=== PATIENT | male | born 1940 | race Caucasian/White ===

== ENCOUNTER → 2016-10-09 | Outpatient (CLI) | payer MEDICARE, BC ==
[2016-10-09 10:48] VITALS: BP 126/75; PULSE 52; RESP 18; TEMP 97.3; BMI 37.5
--- NOTE | 2016-10-19 20:35 | P.PN ---
Progress Note - Text DATE OF CONSULTATION: 10/09/2016. CHIEF COMPLAINT: Bariatric evaluation. HISTORY OF PRESENT ILLNESS: Jaime Knight is a 76-year-old gentleman with a prior history of adjustable gastric band placed in 2009. At his highest weight of 285 pounds, today he comes in weighing 233 pounds. He had gotten as low as 200 pounds. He has maintained a 53 pound weight loss. Incidentally, he has gained 32 pounds over the last several years. His percent excess weight loss is 40%. Body mass index is reduced from 46 down to 37.6. His ideal body weight for a 5 foot 6 frame is 154 pounds. He still is 78 pounds overweight. He comes in with complaints of some bulge in the left upper quadrant at his port site. He also confirmed intermittent reflux especially when he drinks coffee. Since he has gotten back on being cautious with his weight, he reports the pain has improved. He now presents for further evaluation and management. His main concern is to evaluate for his band. PAST MEDICAL HISTORY: 1. History of morbid obesity. 2. Dyslipidemia. 3. Hypertension. 4. Vitamin D deficiency. 5. Anxiety. PAST SURGICAL HISTORY: 1. Placement of adjustable gastric band. 2. Appendectomy. 3. Arthroscopic knee surgery. 4. Prior history of hernia repair. MEDICATIONS: 1. Zocor. 2. Multivitamin. 3. Lopressor. 4. Vitamin D. 5. Aspirin. 6. Xanax. ALLERGIES: Denies. SOCIAL HISTORY: Denies any active tobacco use. He is with at bedside. FAMILY HISTORY: Pertinent for morbid obesity. REVIEW OF SYSTEMS: CONSTITUTIONAL: [place] body weight of 154 pounds. Highest weight of 285 pounds. Lowest weight is 200 pounds with this band. He has maintained a 53 pound weight loss. Percent excess weight loss is 40%. Body mass index reduced from 46 down to 37.6. He is still 78 pounds overweight. HEENT: No reports of troubles with vision. He is hard of hearing. No reports of nasal discharge. Denies any difficulty swallowing. ENDOCRINE: No reports of thyroid disorder or diabetes. CARDIOVASCULAR: History of hypertension. No reports of chest pain or heart attack. RESPIRATORY: No reports of sleep apnea. Denies any dyspnea on exertion. GASTROINTESTINAL: Has intermittent gastroesophageal reflux disease. Denies any blood in stools. Denies any active constipation. MUSCULOSKELETAL: Has intermittent osteoarthritis of the lower back. NEURO: No reports of stroke or seizure disorder. PSYCH: History of anxiety. No reports of depression. HEMATOLOGIC: Denies any easy bruising or bleeding. PHYSICAL EXAM: VITAL SIGNS: 97.3, 52, 18, 126/75, 5 feet 6, 233 pounds. Body mass index 37.6. GENERAL: Well-developed, pleasant male in no acute distress. HEENT: No scleral icterus. Extraocular movements grossly intact. Moist buccal mucosa. NECK: Supple without lymphadenopathy. CHEST: Nonlabored respirations. Equal bilateral excursions. CARDIOVASCULAR: Regular rate and rhythm. ABDOMEN: Soft, nontender, nondistended. Swelling noted along the left upper quadrant. Palpable lap band port. MUSCULOSKELETAL: No clubbing, cyanosis, or edema. NEURO: No focal or lateralizing signs. Cranial nerves II through XII grossly within normal limits. PSYCH: Appropriate affect. Alert and oriented to person, place, and time. LABS: Pending. ASSESSMENT: 1. Morbid obesity due to excess calories. 2. Body mass index reduced from 46 down to 37.6. 3. History of adjustable gastric band. 4. Hypertension. 5. Dyslipidemia. 6. Left upper quadrant abdominal swelling. 7. Hypertension. 8. Vitamin D deficiency. 9. Anxiety. 10. Gastroesophageal reflux disease. 11. Dietary surveillance and counseling. PLAN: 1. I recommend evaluation with adjustable gastric band as well as he has some intermittent history of reflux disease. 2. He reports troubles with his adjustable gastric band port. On exam he does have mild swelling. 3. I have gone over dietary surveillance and counseling whereby he has gained upwards of 30+ pounds. This is likely secondary to poor dietary follow-up. 4. Recommend evaluation of bariatric dietitian. 5. I have gone over not menteating and drinking at the same time with meals, which will washout his pouch. 6. Goal protein intake of at least 75 grams daily was advised. Re-education of protein sources were also reviewed including dietary management. He reports eating fewer than 2 to 3 meals a day. This was asked to be readjusted. 7. Recommend follow-up in approximately 3 weeks with adjustment of his diet in the interim along with his . Thank you very much for this kind consultation. ADDENDUM: PROCEDURE: Adjustment of gastric band. DESCRIPTION: The patient was laid supine. After verbal consent, the skin was prep with ChloraPrep. Using 1 mL of 1% Xylocaine. The skin was localized over the left upper quadrant. Using a 20-gauge non-core Puente needle, his port was accessed. 5.6 mL of normal saline was identified along his port site. He reported intermittent back pain, which had immediately resolved. All fluid was returned into his band. No additional fluid was added. The patient tolerated the procedure well. Recommend follow-up in 3 to 4 weeks with dietary changes.
== END | disposition home or self-care (01) ==
LOC: BARWHC3 09:34
PROVIDERS: ATTEND Surgery Plastic and Reconstructive Surgery
DX: Z48.815 Encounter for surgical aftercare following surgery on the digestive system (principal); Z98.84 Bariatric surgery status; E66.01 Morbid (severe) obesity due to excess calories; Z68.37 Body mass index [BMI] 37.0-37.9, adult; I10 Essential (primary) hypertension; E78.5 Hyperlipidemia, unspecified; R19.02 Left upper quadrant abdominal swelling, mass and lump; E55.9 Vitamin D deficiency, unspecified; F41.9 Anxiety disorder, unspecified; Z79.899 Other long term (current) drug therapy
CPT/HCPCS: 99202

== ENCOUNTER → 2017-05-27 | Outpatient (CLI) | payer MEDICARE, OTHER ==
--- NOTE | 2017-06-20 16:32 | P.PN ---
Progress Note - Text DATE OF CONSULTATION: 05/27/2017. CHIEF COMPLAINT: Bariatric evaluation. HISTORY OF PRESENT ILLNESS: Jaime Knight is a 76-year-old gentleman with a prior history of adjustable gastric band placed in 2009. At his highest weight of 285 pounds, today he comes in weighing 223 pounds. He has lost 9 pounds in 8 months. He has maintained a 62 pound weight loss. His percent excess weight loss is 47%. Body mass index is reduced from 46.1 down to 36.1. His ideal body weight for a 5 foot 6 frame is 154 pounds. He is 69 pounds overweight. He denies abdominal pain. No reports of dysphagia. No reports of reflux disease. He presents for follow-up. PAST MEDICAL HISTORY: 1. History of morbid obesity. 2. Dyslipidemia. 3. Hypertension. 4. Vitamin D deficiency. 5. Anxiety. PAST SURGICAL HISTORY: 1. Placement of adjustable gastric band. 2. Appendectomy. 3. Arthroscopic knee surgery. 4. Prior history of hernia repair. MEDICATIONS: 1. Zocor. 2. Multivitamin. 3. Lopressor. 4. Vitamin D. 5. Aspirin. 6. Xanax. ALLERGIES: Denies. SOCIAL HISTORY: Denies any active tobacco use. He is with at bedside. FAMILY HISTORY: Pertinent for morbid obesity. REVIEW OF SYSTEMS: CONSTITUTIONAL: [place] body weight of 154 pounds. Highest weight of 285 pounds. Lowest weight is 200 pounds with this band. He has maintained a 62 pound weight loss. Percent excess weight loss is 47%. Body mass index reduced from 46.1 down to 36.1. He is 69 pounds overweight. HEENT: No reports of troubles with vision. He is hard of hearing. No reports of nasal discharge. Denies any difficulty swallowing. ENDOCRINE: No reports of thyroid disorder or diabetes. CARDIOVASCULAR: History of hypertension. No reports of chest pain or heart attack. RESPIRATORY: No reports of sleep apnea. Denies any dyspnea on exertion. GASTROINTESTINAL: Denies gastroesophageal reflux disease. Denies any blood in stools. Denies any active constipation. MUSCULOSKELETAL: Has intermittent osteoarthritis of the lower back. NEURO: No reports of stroke or seizure disorder. PSYCH: History of anxiety. No reports of depression. HEMATOLOGIC: Denies any easy bruising or bleeding. PHYSICAL EXAM: VITAL SIGNS: 5 feet 6, 223 pounds. Body mass index 36.1 Vital Signs Temp 99.2 F 05/27/17 13:33 Pulse 85 05/27/17 13:33 Resp 16 05/27/17 13:33 BP 116/74 05/27/17 13:33 Pulse Ox GENERAL: Well-developed, pleasant male in no acute distress. HEENT: No scleral icterus. Extraocular movements grossly intact. Moist buccal mucosa. NECK: Supple without lymphadenopathy. CHEST: Nonlabored respirations. Equal bilateral excursions. CARDIOVASCULAR: Regular rate and rhythm. ABDOMEN: Soft, nontender, nondistended. Nontender along the port site. MUSCULOSKELETAL: No clubbing, cyanosis, or edema. NEURO: No focal or lateralizing signs. Cranial nerves II through XII grossly within normal limits. PSYCH: Appropriate affect. Alert and oriented to person, place, and time. SKIN: Good skin turgor. Well perfused. LABS: Pending. ASSESSMENT: 1. Morbid obesity due to excess calories. 2. Body mass index reduced from 46.1 down to 36.1. 3. History of adjustable gastric band. 4. Hypertension. 5. Dyslipidemia. 6. Left upper quadrant abdominal swelling, improved. 7. Hypertension. 8. Vitamin D deficiency. 9. Anxiety. 10. Gastroesophageal reflux disease. PLAN: 1. He has lost 8 pounds in 8 months. He is overall happy with his success. 2. He denies any current troubles with his adjustable gastric band. 3. His initial left upper abdominal swelling has improved. 4. His hunger and appetite is controlled for more than 4 hours. No need for adjustment at this time. 5. Follow up yearly or sooner.
== END ==
CPT/HCPCS: 99211

== ENCOUNTER 2019-03-09 04:37 | Inpatient (IN) | payer MEDICARE, OTHER ==
--- NOTE | 2019-03-09 05:06 | ED ---
SOB HPI - General Chief Complaint: Shortness of Breath Stated Complaint: aspiration pneumonia Time Seen by Provider: 03/09/19 05:04 Source: patient, family, EMS Mode of arrival: EMS Limitations: altered mental status - History of Present Illness Initial Comments: This patient is a 78-year-old man transferred here from [facility]. The patient had gone to the emergency department there tonight because of concerns about altered mental status and possible low pulse oximetry reading at his long-term care facility, which is [facility]. It is not clear to me the duration of those symptoms. The patient when I interview him does seem to have some dementia and is not able to give much in way of historical detail. He is currently denying pains. He is denying dyspnea. The patient does have occasional nonproductive cough during exam. The workup from the other facility shows that he had labs performed. The main findings from the labs were a normal white blood cell count, at 5100. Hemoglobin 13, platelets 118. The patient's chemistries which showed an elevated BUN to creatinine ratio. There was a arterial blood gas which showed a pCO2 of 71. PH 7.34. PO2 71. The patient had a computed tomography scan of the abdomen and pelvis which showed bilateral lower lobe infiltrates. The patient had received a dose of IM Rocephin and t ransferred here. Complaint: shortness of breath -: unknown Improves With: nothing Worsens With: nothing Associated Symptoms: denies other symptoms Treatments Prior to Arrival: other (Rocephin I am) - Related Data Home Medications Medication Instructions Recorded Confirmed Aspirin 2 tab PO DAILY 10/08/16 05/27/17 Multivitamin [Men's Multi-Vitamin] 1 tab PO DAILY 10/08/16 05/27/17 Simvastatin [Zocor] 1 tab PO HS 10/08/16 05/27/17 ALPRAZolam [Xanax] 0.5 mg PO BID@1300,1700 03/09/19 03/09/19 Acetaminophen Tab [Tylenol Tab] 500 mg PO BID@0500,2000 03/09/19 03/09/19 Acetaminophen Tab [Tylenol Tab] 500 mg PO Q6H PRN 03/09/19 03/09/19 Acetaminophen Tab [Tylenol Tab] 650 mg PO Q6H PRN 03/09/19 03/09/19 Bisacodyl [Dulcolax] 10 mg RECTAL DAILY PRN 03/09/19 03/09/19 Donepezil [Aricept] 10 mg PO HS 03/09/19 03/09/19 Loratadine [Claritin] 10 mg PO HS 03/09/19 03/09/19 Magnesium Hydroxide [Milk of 2,400 mg PO DAILY PRN 03/09/19 03/09/19 Magnesia] Memantine [Namenda] 10 mg PO BID@0900,1700 03/09/19 03/09/19 Mirtazapine 30 mg PO HS 03/09/19 03/09/19 PARoxetine HCL [Paxil] 10 mg PO HS 03/09/19 03/09/19 QUEtiapine FUMARATE [SEROquel] 25 mg PO BID@0900,1700 03/09/19 03/09/19 Saline Emema 1 dose RECTAL DAILY PRN 03/09/19 03/09/19 Sotalol [Betapace] 80 mg PO BID 03/09/19 03/09/19 Warfarin [Coumadin] 2 mg PO HS 03/09/19 03/09/19 Warfarin [Coumadin] 5 mg PO HS 03/09/19 03/09/19 Allergies Allergy/AdvReac Type Severity Reaction Status Date / Time No Known Allergies Allergy Verified 05/27/17 14:03 Review of Systems ROS Statement: Those systems with pertinent positive or pertinent negative responses have been documented in the HPI. ROS Other: All systems not noted in ROS Statement are negative. Limitations: ROS unobtainable due to patients medical condition (Dementia) Past Medical History Past Medical History: Hyperlipidemia, Hypertension History of Any Multi-Drug Resistant Organisms: None Reported Past Surgical History: Appendectomy, Bariatric Surgery, Hernia Repair, Orthopedic Surgery Additional Past Surgical History / Comment(s): arthroscopic surgery knee gastric band Past Anesthesia/Blood Transfusion Reactions: No Reported Reaction Past Psychological History: Anxiety Smoking Status: Never smoker Past Alcohol Use History: None Reported Past Drug Use History: None Reported - Past Family History Father Family Medical History: No Reported History Additional Family Medical History / Comment(s): Father was healthy Mother Family Medical History: Dementia General Exam Limitations: altered mental status General appearance: alert, in no apparent distress, appears intoxicated Head exam: Present: atraumatic, normocephalic Eye exam: Present: normal appearance. Absent: scleral icterus, conjunctival injection Respiratory exam: Present: respiratory distress (Mild tachypnea my exam), rales. Absent: chest wall tenderness Cardiovascular Exam: Present: regular rate, normal rhythm, normal heart sounds GI/Abdominal exam: Present: soft. Absent: distended, tenderness, guarding, rebound, mass Extremities exam: Present: normal inspection, normal capillary refill. Absent: pedal edema, calf tenderness Back exam: Present: normal inspection. Absent: CVA tenderness (R), CVA tenderness (L) Neurological exam: Present: alert. Absent: oriented X3 (Oriented only to person), motor sensory deficit Skin exam: Present: warm, dry, intact, normal color. Absent: rash Course Vital Signs 03/09/19 03/09/19 03/09/19 04:41 05:41 06:41 Temperature 97.9 F 98.0 F Pulse Rate 78 83 Respiratory 19 26 H 19 Rate Blood Pressure 115/68 110/66 O2 Sat by Pulse 96 95 Oximetry 03/09/19 03/09/19 08:00 08:11 Temperature Pulse Rate 78 Respiratory 16 16 Rate Blood Pressure 110/66 O2 Sat by Pulse 99 Oximetry Medical Decision Making - Medical Decision Making Patient 78-year-old man transferred here for pneumonia, altered mental status. The patient's family is at bedside and we did hold in-depth discussion regarding CODE STATUS. The patient's states that the patient had previously expressed a desire to not have any artificial or machine life-support. And she supports his decision. Patient therefore will be documented as no code with full medical care. The patient had been intended as a direct admit but there were no beds available therefore I did enter some basic admission orders and the case discussed with the hospitalist. - Lab Data Result diagrams: 03/09/19 09:40 03/09/19 09:40 - EKG Data -: EKG Interpreted by Me EKG shows normal: sinus rhythm, axis (Normal), intervals (QRS duration borderline at 120 ms. The NJ interval is 184 ms, QTC 453 ms, both normal), QRS complexes (Right bundle-branch block), ST-T waves (Normal) Rate: normal (Rate 73 bpm) Disposition Clinical Impression: Pneumonia, Sepsis Disposition: ADMITTED IP TO THIS HOSP Condition: Poor
[2019-03-09] MEDS ORDERED: ACETAMINOPHEN TAB 325 MG TAB PO STA (06:09)
[2019-03-09] MEDS ORDERED: LEVOFLOXACIN 750MG-D5W PMX 750 MG in DEXTROSE/WATER 1 150ML.BAG IVPB STA (06:33)
[2019-03-09] MEDS ORDERED: PIPERACILLIN-TAZOBACTAM 3.375 GM in SODIUM CHLORIDE 0.9% 100 ML IVPB STA (06:33)
[2019-03-09 10:09] LABS: VBG PH 7.36 (7.31-7.41)
[2019-03-09 10:13] LABS: Basophils % (A) 0 %; Eosinophils # (A) 0.1 k/uL (0-0.7); Eosinophils % (A) 1 %; HCT 44.4 % (39.0-53.0); HGB 13.2 gm/dL (13.0-17.5); Hypochromasia Slight; Lymphocytes # (A) 0.8 k/uL (1.0-4.8); Lymphocytes % (A) 5 %; MCH 27.6 pg (25.0-35.0); MCHC 29.7 g/dL (31.0-37.0); MCV 92.8 fL (80.0-100.0); Mean Platelet Volume 7.2; Monocytes # (A) 0.8 k/uL (0-1.0); Monocytes % (A) 5 %; Neutrophils # (A) 14.3 k/uL (1.3-7.7); Neutrophils % (A) 89 %; Platelet Count 154 k/uL (150-450); RBC 4.79 m/uL (4.30-5.90); RDW 15.2 % (11.5-15.5); WBC 16.1 k/uL (3.8-10.6)
[2019-03-09] MEDS ORDERED: BISACODYL 10 MG SUPP RECTAL PRN (10:14)
[2019-03-09] MEDS ORDERED: [UNRECOGNIZED DRUG - OTHER] RECTAL PRN (10:14)
[2019-03-09] MEDS ORDERED: MAGNESIUM HYDROXIDE 2,400 MG/10 ML CUP PO PRN (10:14)
[2019-03-09 10:19] VITALS: BMI 46.7
[2019-03-09 10:19] LABS: ALT 17 U/L (21-72); AST 19 U/L (17-59); African American GFR (CKD) >90 (>60 ml/min/1.73 sqM); Albumin 3.6 g/dL (3.5-5.0); Alkaline Phosphatase 90 U/L (38-126); Anion Gap 5 mmol/L; Blood Urea Nitrogen 17 mg/dL (9-20); Calcium 8.4 mg/dL (8.4-10.2); Carbon Dioxide 37 mmol/L (22-30); Chloride 99 mmol/L (98-107); Glucose 106 mg/dL (74-99); Sodium 141 mmol/L (137-145); Total Bilirubin 0.3 mg/dL (0.2-1.3); Total Protein 5.9 g/dL (6.3-8.2)
--- NOTE | 2019-03-09 11:12 | XR ---
EXAMINATION TYPE: XR chest 1V portable DATE OF EXAM: 03/09/2019 Comparison: Outside CT chest 03/09/2019 Clinical History: 78-year-old male pneumonia Findings: Mildly enlarged. Low lung volumes. Patchy bibasilar opacities. Upper lungs appear clear. Impression: 1. Mild cardiomegaly. 2. Hypoventilatory changes. 3. Patchy bibasilar infiltrates when correlating with outside CT of the same day. Findings could repr esent infectious or aspiration pneumonitis.
[2019-03-09 11:47] LABS: INR 4.6 (<1.2); Prothrombin Time 44.1 sec (9.0-12.0)
[2019-03-09] MEDS: ALPRAZolam 0.5 MG TAB PO SCH ×2 (14:12→17:54)
--- NOTE | 2019-03-09 15:03 | P.CNPUL ---
History of Present Illness Consult date: 03/09/19 Requesting physician: Denia Fernandes Reason for consult: dyspnea Chief complaint: Shortness of breath, cough, congestion History of present illness: This is a 78-year-old gentleman who follows with a physician out of [place] as his primary care physician. He resides in [facility] now. He has a history of CVA, hypertension, hyperlipidemia, dementia, anxiety. He is a lifelong nonsmoker. While at the [facility] he was found to have altered mental status and low pulse ox readings and was transferred to [facility] and subsequently transferred here. He is seen today in consultation on the regular medical floor. He is awake and alert. Oriented times one. His and daughter at the bedside and providing most of the information. Chest x-ray shows mild cardiomegaly, hypoventilatory changes, patchy basilar infiltrates suggestive of infectious or aspiration pneumonitis or the patient has had issues with coughing and choking with eating and drinking. White count 16.1. Hemoglobin 13.2. INR 4.6. Creatinine 0.81. He has been initiated on Zosyn and Levaquin. He is currently maintaining O2 saturations in the upper 90s on 2 L/m per nasal cannula. He is afebrile. Hemodynamically stable. Review of Systems ROS unobtainable: due to mental status Past Medical History Past Medical History: Hyperlipidemia, Hypertension Additional Past Medical History / Comment(s): Low back pain, bilateral hip pain, CVA with slight L sided weakness, oriented to person mostly, tremors, PVD, chronic sinus problems, YAIR but no longer wears Cpap. History of Any Multi-Drug Resistant Organisms: None Reported Past Surgical History: Appendectomy, Bariatric Surgery, Hernia Repair, Orthopedic Surgery Additional Past Surgical History / Comment(s): arthroscopic surgery knee gastric band Past Anesthesia/Blood Transfusion Reactions: No Reported Reaction Past Psychological History: Anxiety Smoking Status: Never smoker Past Alcohol Use History: None Reported Past Drug Use History: None Reported - Past Family History Father Family Medical History: No Reported History Additional Family Medical History / Comment(s): Father was healthy Mother Family Medical History: Dementia Medications and Allergies Home Medications Medication Instructions Recorded Confirmed Type Aspirin 81 mg PO DAILY@0600 10/08/16 03/09/19 History Multivitamin [Men's Multi-Vitamin] 1 tab PO DAILY 10/08/16 03/09/19 History Simvastatin [Zocor] 10 mg PO HS 10/08/16 03/09/19 History ALPRAZolam [Xanax] 0.5 mg PO BID@1300,1700 03/09/19 03/09/19 History Acetaminophen Tab [Tylenol Tab] 500 mg PO BID@0500,2000 03/09/19 03/09/19 History Acetaminophen Tab [Tylenol Tab] 500 mg PO Q6H PRN 03/09/19 03/09/19 History Acetaminophen Tab [Tylenol Tab] 650 mg PO Q6H PRN 03/09/19 03/09/19 History Bisacodyl [Dulcolax] 10 mg RECTAL DAILY PRN 03/09/19 03/09/19 History Donepezil [Aricept] 10 mg PO HS 03/09/19 03/09/19 History Loratadine [Claritin] 10 mg PO HS 03/09/19 03/09/19 History Magnesium Hydroxide [Milk of 2,400 mg PO DAILY PRN 03/09/19 03/09/19 History Magnesia] Memantine [Namenda] 10 mg PO BID@0900,1700 03/09/19 03/09/19 History Mirtazapine 30 mg PO HS 03/09/19 03/09/19 History PARoxetine HCL [Paxil] 10 mg PO HS 03/09/19 03/09/19 History QUEtiapine FUMARATE [SEROquel] 25 mg PO BID@0900,1700 03/09/19 03/09/19 History Saline Emema 1 dose RECTAL DAILY PRN 03/09/19 03/09/19 History Sotalol [Betapace] 80 mg PO BID 03/09/19 03/09/19 History Warfarin [Coumadin] 2 mg PO HS 03/09/19 03/09/19 History Warfarin [Coumadin] 5 mg PO HS 03/09/19 03/09/19 History Allergies Allergy/AdvReac Type Severity Reaction Status Date / Time No Known Allergies Allergy Verified 05/27/17 14:03 Physical Exam Vitals: Vital Signs Temp Pulse Pulse Resp BP BP Pulse Ox 03/09/19 12:33 97.7 F 78 16 120/61 98 03/09/19 08:30 97.8 F 72 18 111/74 93 L 03/09/19 08:11 78 16 110/66 99 03/09/19 08:00 16 03/09/19 06:41 98.0 F 83 19 110/66 95 03/09/19 05:41 26 H 03/09/19 04:41 97.9 F 78 19 115/68 96 Intake and Output 03/08/19 03/09/19 03/09/19 22:59 06:59 14:59 Other: Weight 131.542 kg GENERAL EXAM: Alert, oriented times one comfortable in no apparent distress. On 2 L/m per nasal cannula HEAD: Normocephalic. EYES: Normal reaction of pupils, equal size. NOSE: Clear with pink turbinates. THROAT: No erythema or exudates. NECK: No masses, no JVD. CHEST: No chest wall deformity. LUNGS: Equal air entry with crackles in the bilateral posterior bases. CVS: S1 and S2 normal with no audible murmur, regular rhythm. ABDOMEN: No hepatosplenomegaly, normal bowel sounds, no guarding or rigidity. SPINE: No scoliosis or deformity SKIN: No rashes CENTRAL NERVOUS SYSTEM: Dementia, tone is normal in all 4 extremities. EXTREMITIES: There is trace peripheral edema. No clubbing, no cyanosis. Peripheral pulses are intact. Results - Laboratory Findings CBC and BMP: 03/09/19 09:40 03/09/19 09:40 PT/INR, D-dimer PT 44.1 sec (9.0-12.0) H 03/09/19 09:40 INR 4.6 (<1.2) H 03/09/19 09:40 Abnormal lab findings: Abnormal Labs 03/09/19 03/09/19 03/09/19 09:40 09:40 09:40 WBC 16.1 H MCHC 29.7 L Neutrophils # 14.3 H Lymphocytes # 0.8 L PT INR VBG pCO2 67 H VBG HCO3 37 H Carbon Dioxide 37 H Glucose 106 H ALT 17 L Total Protein 5.9 L 03/09/19 09:40 WBC MCHC Neutrophils # Lymphocytes # PT 44.1 H INR 4.6 H VBG pCO2 VBG HCO3 Carbon Dioxide Glucose ALT Total Protein - Diagnostic Findings Chest x-ray: image reviewed Assessment and Plan Assessment: Impression: #1 Acute hypoxic respiratory failure secondary to suspected aspiration pneumonia. #2 Dysphagia. #3 Dementia. #4 History of CVA. #5 Hypertension. #6 Hyperlipidemia. #7 Anxiety. #8 History of gastric banding. #9 Poor overall functional performance based on the above-mentioned multiple comorbidities. Plan: The patient was seen and evaluated by Dr. Lujan. Chest x-ray, CAT scan and labs all reviewed. Suspect some component of aspiration. Speech therapy for swallow evaluation. Aspiration precautions. Continue Zosyn and Levaquin. Add bronchodilators. Anticoagulated with warfarin, supratherapeutic. We will continue to follow and make further recommendations based on his clinical status. I, the cosigning physician, performed a history & physical examination of the patient. Lungs sounds crackles in the posterior bases. Maintaining good O2 saturations in the 90s on 2 L/m per nasal cannula. I discussed the assessment and plan of care with my nurse practitioner, Gabriella Trevino. I attest to the above note as dictated by her. Time with Patient: Greater than 30
[2019-03-09] MEDS: IPRATROPIUM-ALBUTEROL 3 ML NEB INHALATION SCH ×2 (16:35→19:20)
--- NOTE | 2019-03-09 16:46 | HP ---
HISTORY AND PHYSICAL DATE OF SERVICE: 03/09/2019 CHIEF COMPLAINT: Shortness of breath. HISTORY OF PRESENT ILLNESS: This 78-year-old gentleman with a past medical history of multiple medical problems including hypertension, hyperlipidemia, low back pain, DJD, history of appendectomy, bariatric surgery, anxiety being followed by Dr. Robert Velez in [facility], also had history of lap band surgery. Patient apparently having some difficulty eating of late. The patient also had fullness. The lap band is also bothering him according to him and yesterday the patient had a drop in the pulse with shortness of breath. The patient taken to [facility] and regular physician discussed the case at length with me over the phone. The patient was transferred to [facility] as a direct admission at this time. There is no history of fever, rigors. No history of headache, loss of consciousness or seizures. PAST MEDICAL HISTORY: Back pain, history of hypertension, hyperlipidemia, history of bariatric surgery, history of anxiety. MEDICATIONS: Prior to admission include home medications are: 1. Tylenol 500 mg q.6h p.r.n. 2. Saline one dose p.r.n. 3. Milk of magnesia 2.4 p.r.n. 4. Dulcolax 10 mg daily p.r.n. 5. Xanax 0.5 b.i.d. 6. Betapace 80 mg p.o. b.i.d. 7. Tylenol 500 mg p.o. b.i.d. 8. Coumadin 2 mg p.o. q.h.s. and 5 mg p.o. q.h.s. 9. Seroquel 25 mg p.o. b.i.d. 10.Aspirin 81 mg p.o. daily. 11.Namenda 10 mg p.o. b.i.d. 12.Zocor 10 mg p.o. q.h.s. 13.Paxil 10 mg q.h.s. 14.Multivitamins 1 p.o. daily. 15.Remeron 30 mg q.h.s. 16.Claritin 10 mg q.h.s. 17.Aricept 10 mg q.h.s. ALLERGIES: None. FAMILY HISTORY: No family history of heart disease or strokes in the family. SOCIAL HISTORY: No history of smoking. No history of alcohol intake. REVIEW OF SYSTEMS: ENT: Diminished vision. Diminished hearing. CARDIOVASCULAR system: As mentioned earlier. RESPIRATORY: As mentioned earlier. GI no nausea or vomiting. no dysuria. NERVOUS SYSTEM: As mentioned earlier. ALLERGY/IMMUNOLOGY: No asthma or hayfever. MUSCULOSKELETAL as mentioned earlier. HEMATOLOGY/ONCOLOGY: As mentioned earlier. ENDOCRINE: As mentioned earlier. CONSTITUTIONAL: As mentioned earlier. DERMATOLOGY: Negative. RHEUMATOLOGY: Negative. PSYCHIATRY: As mentioned earlier. PHYSICAL EXAMINATION: Patient is alert and oriented times three. Pulse is 72. Blood pressure 111/75, respiration 18, temperature 97.8, pulse ox 98% on 4 L. HEENT: Conjunctivae normal. Oral mucosa moist. NECK is no jugular venous distention. No carotid bruit. No lymph node enlargement. CARDIOVASCULAR: S1, S2 muffled. No S3, no S4. RESPIRATORY: Breath sounds diminished in the bases. A few scattered rhonchi and crackles. ABDOMEN: Soft, nontender. No mass palpable. LEGS: No edema. No swelling. NERVOUS SYSTEM: Higher functions as mentioned earlier. Moves all 4 limbs. No focal motor or sensory deficits. SKIN: No ulcer, rash or bleeding. JOINTS: No active deforming arthropathy. LAB STUDIES: WBC 16.1, INR is 1.6 and VBG noted. Otherwise, sodium 140, potassium 5. ASSESSMENT: 1. Hypoxia with acute bilateral aspiration pneumonia with acute hypoxic respiratory failure. 2. Rule out dysphagia or esophageal stenosis. 3. History of lap band and bariatric surgery. 4. Gait dysfunction. 5. Coumadin coagulopathy. 6. Hyperlipidemia. 7. Hypertension. 8. History of low back pain/degenerative joint disease. 9. History of cerebrovascular accident with left-sided weakness. 10.History of tremors. 11.History of peripheral vascular disease. 12.History of sick sinus syndrome. 13.History of bariatric surgery. 14.History of anxiety. 15.Obesity with body mass index 46.8. 16.NO CODE, NO CPR, NO VENT. RECOMMENDATIONS AND DISCUSSION: This 78-year-old gentleman who presented with multiple complex medical issues, we will monitor the patient closely, continue the current medications, management and symptomatic treatment. I would recommend broad-spectrum IV antibiotics. Resume the home medications. Hold Coumadin today. Otherwise bronchodilators. I would also recommend close follow up with Dr. Lujan. Otherwise consult Dr. Macias regarding lap band and dysphagia. Prognosis guarded because of multiple complex medical issues. Further recommendations to follow. MMODL / IJN: [id number] /
--- NOTE | 2019-03-09 17:32 | P.GSCN ---
History of Present Illness Consult date: 03/09/19 Reason for Consult: Aspiration pneumonia History of present illness: This is a 78-year-old male who was admitted to the hospital with aspiration pneumonia. Patient is an old LAP-BAND patient of mine. He had LAP-BAND surgery performed approximately 10 years ago. He has a developmental dementia and is living in assisted living facility. Apparently he has had trouble swallowing. His family states he has had chronic vomiting over the last several months. Past Medical History Past Medical History: Hyperlipidemia, Hypertension Additional Past Medical History / Comment(s): Low back pain, bilateral hip pain, CVA with slight L sided weakness, oriented to person mostly, tremors, PVD, chronic sinus problems, YAIR but no longer wears Cpap. History of Any Multi-Drug Resistant Organisms: None Reported Past Surgical History: Appendectomy, Bariatric Surgery, Hernia Repair, Orthopedic Surgery Additional Past Surgical History / Comment(s): arthroscopic surgery knee gastric band Past Anesthesia/Blood Transfusion Reactions: No Reported Reaction Past Psychological History: Anxiety Smoking Status: Never smoker Past Alcohol Use History: None Reported Past Drug Use History: None Reported - Past Family History Father Family Medical History: No Reported History Additional Family Medical History / Comment(s): Father was healthy Mother Family Medical History: Dementia Medications and Allergies Home Medications Medication Instructions Recorded Confirmed Type Aspirin 81 mg PO DAILY@0600 10/08/16 03/09/19 History Multivitamin [Men's Multi-Vitamin] 1 tab PO DAILY 10/08/16 03/09/19 History Simvastatin [Zocor] 10 mg PO HS 10/08/16 03/09/19 History ALPRAZolam [Xanax] 0.5 mg PO BID@1300,1700 03/09/19 03/09/19 History Acetaminophen Tab [Tylenol Tab] 500 mg PO BID@0500,2000 03/09/19 03/09/19 History Acetaminophen Tab [Tylenol Tab] 500 mg PO Q6H PRN 03/09/19 03/09/19 History Acetaminophen Tab [Tylenol Tab] 650 mg PO Q6H PRN 03/09/19 03/09/19 History Bisacodyl [Dulcolax] 10 mg RECTAL DAILY PRN 03/09/19 03/09/19 History Donepezil [Aricept] 10 mg PO HS 03/09/19 03/09/19 History Loratadine [Claritin] 10 mg PO HS 03/09/19 03/09/19 History Magnesium Hydroxide [Milk of 2,400 mg PO DAILY PRN 03/09/19 03/09/19 History Magnesia] Memantine [Namenda] 10 mg PO BID@0900,1700 03/09/19 03/09/19 History Mirtazapine 30 mg PO HS 03/09/19 03/09/19 History PARoxetine HCL [Paxil] 10 mg PO HS 03/09/19 03/09/19 History QUEtiapine FUMARATE [SEROquel] 25 mg PO BID@0900,1700 03/09/19 03/09/19 History Saline Emema 1 dose RECTAL DAILY PRN 03/09/19 03/09/19 History Sotalol [Betapace] 80 mg PO BID 03/09/19 03/09/19 History Warfarin [Coumadin] 2 mg PO HS 03/09/19 03/09/19 History Warfarin [Coumadin] 5 mg PO HS 03/09/19 03/09/19 History Allergies Allergy/AdvReac Type Severity Reaction Status Date / Time No Known Allergies Allergy Verified 05/27/17 14:03 Surgical - Exam Vital Signs Temp Pulse Resp BP Pulse Ox 97.9 F 78 19 115/68 96 03/09/19 04:41 03/09/19 04:41 03/09/19 04:41 03/09/19 04:41 03/09/19 04:41 - General well developed, no distress - Eyes PERRL - ENT normal pinna - Neck no masses - Respiratory normal expansion - Cardiovascular Rhythm: regular - Abdomen Abdomen: soft, non tender Results - Labs 03/09/19 09:40 03/09/19 09:40 Abnormal Lab Results - Last 24 Hours (Table) 03/09/19 03/09/19 03/09/19 Range/Units 09:40 09:40 09:40 WBC 16.1 H (3.8-10.6) k/uL MCHC 29.7 L (31.0-37.0) g/dL Neutrophils # 14.3 H (1.3-7.7) k/uL Lymphocytes # 0.8 L (1.0-4.8) k/uL PT (9.0-12.0) sec INR (<1.2) VBG pCO2 67 H (37-51) mmHg VBG HCO3 37 H (24-28) mmol/L Carbon Dioxide 37 H (22-30) mmol/L Glucose 106 H (74-99) mg/dL ALT 17 L (21-72) U/L Total Protein 5.9 L (6.3-8.2) g/dL 03/09/19 Range/Units 09:40 WBC (3.8-10.6) k/uL MCHC (31.0-37.0) g/dL Neutrophils # (1.3-7.7) k/uL Lymphocytes # (1.0-4.8) k/uL PT 44.1 H (9.0-12.0) sec INR 4.6 H (<1.2) VBG pCO2 (37-51) mmHg VBG HCO3 (24-28) mmol/L Carbon Dioxide (22-30) mmol/L Glucose (74-99) mg/dL ALT (21-72) U/L Total Protein (6.3-8.2) g/dL Diabetes panel 03/09/19 Range/Units 09:40 Sodium 141 (137-145) mmol/L Potassium 5.0 (3.5-5.1) mmol/L Chloride 99 (98-107) mmol/L Carbon Dioxide 37 H (22-30) mmol/L BUN 17 (9-20) mg/dL Creatinine 0.81 (0.66-1.25) mg/dL Glucose 106 H (74-99) mg/dL Calcium 8.4 (8.4-10.2) mg/dL AST 19 (17-59) U/L ALT 17 L (21-72) U/L Alkaline Phosphatase 90 (38-126) U/L Total Protein 5.9 L (6.3-8.2) g/dL Albumin 3.6 (3.5-5.0) g/dL Calcium panel 03/09/19 Range/Units 09:40 Calcium 8.4 (8.4-10.2) mg/dL Albumin 3.6 (3.5-5.0) g/dL Pituitary panel 03/09/19 Range/Units 09:40 Sodium 141 (137-145) mmol/L Potassium 5.0 (3.5-5.1) mmol/L Chloride 99 (98-107) mmol/L Carbon Dioxide 37 H (22-30) mmol/L BUN 17 (9-20) mg/dL Creatinine 0.81 (0.66-1.25) mg/dL Glucose 106 H (74-99) mg/dL Calcium 8.4 (8.4-10.2) mg/dL Adrenal panel 03/09/19 Range/Units 09:40 Sodium 141 (137-145) mmol/L Potassium 5.0 (3.5-5.1) mmol/L Chloride 99 (98-107) mmol/L Carbon Dioxide 37 H (22-30) mmol/L BUN 17 (9-20) mg/dL Creatinine 0.81 (0.66-1.25) mg/dL Glucose 106 H (74-99) mg/dL Calcium 8.4 (8.4-10.2) mg/dL Total Bilirubin 0.3 (0.2-1.3) mg/dL AST 19 (17-59) U/L ALT 17 L (21-72) U/L Alkaline Phosphatase 90 (38-126) U/L Total Protein 5.9 L (6.3-8.2) g/dL Albumin 3.6 (3.5-5.0) g/dL Assessment and Plan Assessment: Dysphagia Aspiration pneumonia Patient's lap band was emptied. 6 mL was removed from his LAP-BAND. He'll be observed to see if he tolerates his diet. If he appears to have further dysphagia he will need a swallow evaluation
[2019-03-09] MEDS: PIPERACILLIN-TAZOBACTAM 3.375 GM in SODIUM CHLORIDE 0.9% 100 ML IVPB SCH (17:46)
[2019-03-09] MEDS: MEMANTINE 10 MG TAB PO SCH (17:54)
[2019-03-09] MEDS: QUEtiapine 25 MG TAB PO SCH (17:54)
[2019-03-09] MEDS ORDERED: WARFARIN 0.5 MG TAB PO ONE (18:00)
[2019-03-09] MEDS: ACETAMINOPHEN TAB 500 MG TAB PO SCH (20:36)
[2019-03-09] MEDS: PARoxetine 10 MG TAB PO SCH (20:36)
[2019-03-09] MEDS: DONEPEZIL 10 MG TAB PO SCH (20:36)
[2019-03-09] MEDS: ATORVASTATIN 10 MG TAB PO SCH (20:36)
[2019-03-09] MEDS: SOTALOL 80 MG TAB PO SCH (20:36)
[2019-03-09] MEDS: MIRTAZAPINE 15 MG TAB PO SCH (20:36)
[2019-03-09] MEDS: LORATADINE 10 MG TAB PO SCH (20:36)
[2019-03-09] MEDS ORDERED: WARFARIN 5 MG TAB PO SCH (21:00)
[2019-03-09] MEDS ORDERED: WARFARIN 2 MG TAB PO SCH (21:00)
[2019-03-10] MEDS: PIPERACILLIN-TAZOBACTAM 3.375 GM in SODIUM CHLORIDE 0.9% 100 ML IVPB SCH ×4 (02:09→23:41)
[2019-03-10] MEDS: LEVOFLOXACIN 750MG-D5W PMX 750 MG in DEXTROSE/WATER 1 150ML.BAG IVPB SCH (06:10)
[2019-03-10 08:12] LABS: INR 3.9 (<1.2); Prothrombin Time 37.3 sec (9.0-12.0)
[2019-03-10 08:15] LABS: African American GFR (CKD) >90 (>60 ml/min/1.73 sqM); Blood Urea Nitrogen 14 mg/dL (9-20); Calcium 8.6 mg/dL (8.4-10.2); Chloride 99 mmol/L (98-107); Glucose 106 mg/dL (74-99); Potassium 4.9 mmol/L (3.5-5.1); Sodium 140 mmol/L (137-145)
[2019-03-10] MEDS: IPRATROPIUM-ALBUTEROL 3 ML NEB INHALATION SCH ×4 (08:15→19:38)
[2019-03-10 08:22] LABS: Anion Gap 2 mmol/L; Carbon Dioxide 39 mmol/L (22-30)
[2019-03-10 08:38] LABS: Basophils % (A) 0 %; Eosinophils # (A) 0.2 k/uL (0-0.7); Eosinophils % (A) 3 %; HCT 38.4 % (39.0-53.0); HGB 11.6 gm/dL (13.0-17.5); Hypochromasia Moderate; Lymphocytes # (A) 1.3 k/uL (1.0-4.8); Lymphocytes % (A) 16 %; MCH 27.5 pg (25.0-35.0); MCHC 30.3 g/dL (31.0-37.0); Mean Platelet Volume 7.3; Monocytes # (A) 0.4 k/uL (0-1.0); Monocytes % (A) 5 %; Neutrophils # (A) 6.2 k/uL (1.3-7.7); Neutrophils % (A) 75 %; Platelet Count 134 k/uL (150-450); RBC 4.22 m/uL (4.30-5.90); RDW 15.2 % (11.5-15.5); WBC 8.3 k/uL (3.8-10.6)
[2019-03-10] MEDS: ACETAMINOPHEN TAB 500 MG TAB PO SCH ×2 (08:41→20:06)
[2019-03-10] MEDS: ASPIRIN 81 MG PO SCH (08:41)
[2019-03-10] MEDS: MULTIVITAMINS, THERA 1 EACH TAB PO SCH (08:42)
[2019-03-10] MEDS: MEMANTINE 10 MG TAB PO SCH ×2 (08:42→17:41)
[2019-03-10] MEDS: QUEtiapine 25 MG TAB PO SCH ×2 (08:43→17:41)
[2019-03-10] MEDS: SOTALOL 80 MG TAB PO SCH ×2 (08:44→20:06)
--- NOTE | 2019-03-10 11:50 | P.PN ---
Subjective Progress Note Date: 03/10/19 Principal diagnosis: Acute hypoxic respiratory failure secondary to aspiration pneumonia. This is a 78-year-old gentleman who follows with a physician out of [place] as his primary care physician. He resides in [facility] now. He has a history of CVA, hypertension, hyperlipidemia, dementia, anxiety. He is a lifelong nonsmoker. While at the [facility] he was found to have altered mental status and low pulse ox readings and was transferred to [facility] and subsequently transferred here. He is seen today in consultation on the regular medical floor. He is awake and alert. Oriented times one. His and daughter at the bedside and providing most of the information. Chest x-ray shows mild cardiomegaly, hypoventilatory changes, patchy basilar infiltrates suggestive of infectious or aspiration pneumonitis or the patient has had issues with coughing and choking with eating and drinking. White count 16.1. Hemoglobin 13.2. INR 4.6. Creatinine 0.81. He has been initiated on Zosyn and Levaquin. He is currently maintaining O2 saturations in the upper 90s on 2 L/m per nasal cannula. He is afebrile. Hemodynamically stable. The patient is seen today 03/10/2019 in follow-up on the regular medical floor. He is currently resting comfortably in bed. No further cough or congestion. Maintaining O2 saturations in the high 90s on 4 L/m per nasal cannula. He's been afebrile. Hemodynamically stable. He was seen and evaluated by speech therapy recommends supervise feedings as the patient does her he threw meals. He is on a full liquid diet currently. He was also seen and evaluated by surgical services who remove 6 mL of fluid from his lap band to assist in his swallowing. Blood culture reveals no growth to date. White count 8.3. Hemoglobin 11.6. INR 3.9. Creatinine 0.90. He remains on bronchodilators, Zosyn, Levaquin. Objective - Vital Signs Vital signs: Vital Signs Temp 98 F 03/10/19 04:59 Pulse 72 03/10/19 08:29 Resp 18 03/10/19 04:59 BP 131/64 03/10/19 04:59 Pulse Ox 98 03/10/19 04:59 Intake & Output 03/09/19 03/10/19 03/10/19 18:59 06:59 18:59 Intake Total 200 Balance 200 Intake: Oral 200 Other: Voiding Method Incontinent # Voids 2 - Exam GENERAL EXAM: Alert, oriented times one comfortable in no apparent distress. On 4 L/m per nasal cannula HEAD: Normocephalic. EYES: Normal reaction of pupils, equal size. NOSE: Clear with pink turbinates. THROAT: No erythema or exudates. NECK: No masses, no JVD. CHEST: No chest wall deformity. LUNGS: Equal air entry with crackles in the bilateral posterior bases. CVS: S1 and S2 normal with no audible murmur, regular rhythm. ABDOMEN: No hepatosplenomegaly, normal bowel sounds, no guarding or rigidity. SPINE: No scoliosis or deformity SKIN: No rashes CENTRAL NERVOUS SYSTEM: Dementia, tone is normal in all 4 extremities. EXTREMITIES: There is trace peripheral edema. No clubbing, no cyanosis. Peripheral pulses are intact. - Labs CBC & Chem 7: 03/10/19 07:34 03/10/19 07:34 Labs: Abnormal Lab Results - Last 24 Hours (Table) 03/09/19 03/10/19 03/10/19 Range/Units 09:40 07:34 07:34 RBC 4.22 L (4.30-5.90) m/uL Hgb 11.6 L (13.0-17.5) gm/dL Hct 38.4 L (39.0-53.0) % MCHC 30.3 L (31.0-37.0) g/dL Plt Count 134 L (150-450) k/uL PT 44.1 H 37.3 H (9.0-12.0) sec INR 4.6 H 3.9 H (<1.2) Carbon Dioxide (22-30) mmol/L Glucose (74-99) mg/dL 03/10/19 Range/Units 07:34 RBC (4.30-5.90) m/uL Hgb (13.0-17.5) gm/dL Hct (39.0-53.0) % MCHC (31.0-37.0) g/dL Plt Count (150-450) k/uL PT (9.0-12.0) sec INR (<1.2) Carbon Dioxide 39 H (22-30) mmol/L Glucose 106 H (74-99) mg/dL Microbiology - Last 24 Hours (Table) 03/09/19 05:15 Blood Culture - Preliminary Blood No Growth after 24 hours Assessment and Plan Assessment: Impression: #1 Acute hypoxic respiratory failure secondary to suspected aspiration pneumonia. #2 Dysphagia. #3 Dementia. #4 History of CVA. #5 Hypertension. #6 Hyperlipidemia. #7 Anxiety. #8 History of gastric banding. #9 Poor overall functional performance based on the above-mentioned multiple com orbidities. Plan: The patient was seen and evaluated by Dr. Lujan. He is stable from the pulmona ry standpoint. The lap band has been emptied. Swallow evaluation performed by speech therapy. Continue Zosyn and Levaquin. We will continue to follow and make further recommendations based on his clinical status. I, the cosigning physician, performed a history & physical examination of the patient. Lungs sounds crackles in the posterior bases. Maintaining good O2 saturations in the 90s on 4 L/m per nasal cannula. I discussed the assessment and plan of care with my nurse practitioner, Gabriella Trevino. I attest to the above note as dictated by her.
[2019-03-10] MEDS: ALPRAZolam 0.5 MG TAB PO SCH ×2 (12:56→17:41)
--- NOTE | 2019-03-10 16:47 | PN ---
PROGRESS NOTE DATE OF SERVICE: 03/10/2019 This 78-year-old gentleman, admitted with shortness of breath and possible hypoxia with possibly aspiration pneumonia, is being closely monitored at this time. The patient was a resident of [facility] in [place]. The patient also had lap band previously, and on 02/25 the fluid was removed by Dr. Macias. The patient is being closely monitored at this time. The patient is able to tolerate clear liquids at this time, though, after the removal of the lap band fluid. The patient being closely monitored. Patient is on broad-spectrum IV antibiotics. The patient is also on bronchodilators, which makes the patient better, according to the family. Past medical history reviewed. REVIEW OF SYSTEMS: CARDIOVASCULAR SYSTEM: No angina, palpitations. RESPIRATORY SYSTEM: As mentioned earlier. GI: As mentioned earlier. : No dysuria or retention. NERVOUS SYSTEM: No numbness, weakness. CURRENT MEDICATIONS: Reviewed. They include: 1. Tylenol 500 mg p.o. b.i.d. 2. DuoNeb q.i.d. and p.r.n. 3. Xanax 0.5 b.i.d. 4. Aspirin 81 mg daily. 5. Lipitor 10 mg. 6. Dulcolax p.r.n. 7. Aricept 10 mg at bedtime. 8. Levaquin 750 daily. 9. Claritin 10 mg at bedtime. 10.Milk of Magnesia. 11.Namenda 10 mg p.o. b.i.d. 12.Remeron 30 mg at bedtime. 13.Coumadin. 14.Multivitamins 1 p.o. daily. 15.Paxil 10 mg at bedtime. 16.Seroquel 25 mg p.o. b.i.d. 17.Betapace 80 mg p.o. b.i.d. PHYSICAL EXAMINATION: Patient is alert, oriented x3. Pulse 90, blood pressure 91/59, respiration 18, temperature 97.7, pulse ox 96% on 4 L. HEENT: Conjunctivae normal. NECK: No jugular venous distention. CARDIOVASCULAR SYSTEM: S1, S2 muffled. RESPIRATORY SYSTEM: Breath sounds diminished at the bases. Bilateral scattered rhonchi and crackles. Expiratory wheezing also present. ABDOMEN: Soft, non-tender. LEGS: No edema. No swelling. NERVOUS SYSTEM: No focal deficit. LABS: WBC 8.3, hemoglobin 11.6, platelets 134. INR is 3.9. ASSESSMENT: 1. Hypoxia with acute bilateral aspiration pneumonia with acute hypoxic respiratory failure, present on admission. 2. Dysphagia, possibly secondary to lap band, status post lap band fluid removal. 3. History of lap band and bariatric surgery previously. 4. Gait dysfunction. 5. Coumadin coagulopathy. 6. Hyperlipidemia. 7. Hypertension. 8. History of low back pain and degenerative joint disease. 9. History of cerebrovascular accident, transient ischemic attack. 10.History of tremors. 11.History of peripheral vascular disease. 12.History of sick sinus syndrome. 13.History of bariatric surgery. 14.History of anxiety. 15.Obesity with body mass index of 46.8. 16.NO CODE, NO CPR, NO VENT. RECOMMENDATIONS AND DISCUSSION: In this 78-year-old gentleman who presented with multiple complex medical issues, we will monitor the patient closely, continue the current management, continue symptomatic treatment. Continue with the bronchodilators. Continue with empiric antibiotics. Monitor the PT, INR closely. Ensure oxygenation. Closely follow with multiple consultants. Currently the patient appears to be tolerating clear liquids. Will advance the diet and see whether he will be able to tolerate it. Guarded prognosis. Further recommendations to follow. MMODL / IJN: [id number] /
--- NOTE | 2019-03-10 17:10 | P.PN ---
Progress Note - Text Progress Note Date: 03/10/19 Patient is tolerating a full liquid diet. He's had no further vomiting since his LAP-BAND was emptied. On exam his vital signs are stable. His abdomen soft. Dysphagia has been resolved by attempting his LAP-BAND. Patient will have his diet advanced to regular diet.
[2019-03-10] MEDS ORDERED: WARFARIN 0.5 MG TAB PO ONE (18:00)
[2019-03-10] MEDS: LORATADINE 10 MG TAB PO SCH (20:06)
[2019-03-10] MEDS: ATORVASTATIN 10 MG TAB PO SCH (20:06)
[2019-03-10] MEDS: MIRTAZAPINE 15 MG TAB PO SCH (20:06)
[2019-03-10] MEDS: PARoxetine 10 MG TAB PO SCH (20:07)
[2019-03-10] MEDS: DONEPEZIL 10 MG TAB PO SCH (20:07)
[2019-03-11] MEDS: LEVOFLOXACIN 750MG-D5W PMX 750 MG in DEXTROSE/WATER 1 150ML.BAG IVPB SCH (05:14)
[2019-03-11] MEDS: ACETAMINOPHEN TAB 500 MG TAB PO SCH ×2 (05:14→20:10)
[2019-03-11] MEDS: ASPIRIN 81 MG PO SCH (05:14)
[2019-03-11] MEDS: IPRATROPIUM-ALBUTEROL 3 ML NEB INHALATION SCH ×4 (08:24→19:44)
[2019-03-11] MEDS: PIPERACILLIN-TAZOBACTAM 3.375 GM in SODIUM CHLORIDE 0.9% 100 ML IVPB SCH ×2 (08:35→16:48)
[2019-03-11] MEDS: SOTALOL 80 MG TAB PO SCH ×2 (08:43→20:10)
[2019-03-11] MEDS: QUEtiapine 25 MG TAB PO SCH ×2 (08:43→16:48)
[2019-03-11] MEDS: MEMANTINE 10 MG TAB PO SCH ×2 (08:43→16:48)
[2019-03-11] MEDS: MULTIVITAMINS, THERA 1 EACH TAB PO SCH (08:43)
[2019-03-11 09:26] LABS: Basophils % (A) 0 %; Eosinophils # (A) 0.3 k/uL (0-0.7); Eosinophils % (A) 4 %; HCT 39.4 % (39.0-53.0); HGB 12.2 gm/dL (13.0-17.5); Hypochromasia Slight; Lymphocytes # (A) 1.2 k/uL (1.0-4.8); Lymphocytes % (A) 16 %; MCH 27.9 pg (25.0-35.0); MCHC 30.9 g/dL (31.0-37.0); MCV 90.2 fL (80.0-100.0); Mean Platelet Volume 7.7; Monocytes # (A) 0.4 k/uL (0-1.0); Monocytes % (A) 5 %; Neutrophils # (A) 5.2 k/uL (1.3-7.7); Neutrophils % (A) 72 %; Platelet Count 153 k/uL (150-450); RBC 4.36 m/uL (4.30-5.90); RDW 14.6 % (11.5-15.5); WBC 7.2 k/uL (3.8-10.6)
[2019-03-11 09:31] LABS: INR 2.4 (<1.2); Prothrombin Time 22.9 sec (9.0-12.0)
[2019-03-11 09:39] LABS: Potassium 5.2 mmol/L (3.5-5.1)
--- NOTE | 2019-03-11 10:11 | P.PN ---
Subjective Progress Note Date: 03/11/19 Principal diagnosis: Acute hypoxic respiratory failure secondary to aspiration pneumonia. This is a 78-year-old gentleman who follows with a physician out of [place] as his primary care physician. He resides in [facility] now. He has a history of CVA, hypertension, hyperlipidemia, dementia, anxiety. He is a lifelong nonsmoker. While at the [facility] he was found to have altered mental status and low pulse ox readings and was transferred to [facility] and subsequently transferred here. He is seen today in consultation on the regular medical floor. He is awake and alert. Oriented times one. His and daughter at the bedside and providing most of the information. Chest x-ray shows mild cardiomegaly, hypoventilatory changes, patchy basilar infiltrates suggestive of infectious or aspiration pneumonitis or the patient has had issues with coughing and choking with eating and drinking. White count 16.1. Hemoglobin 13.2. INR 4.6. Creatinine 0.81. He has been initiated on Zosyn and Levaquin. He is currently maintaining O2 saturations in the upper 90s on 2 L/m per nasal cannula. He is afebrile. Hemodynamically stable. The patient is seen today 03/10/2019 in follow-up on the regular medical floor. He is currently resting comfortably in bed. No further cough or congestion. Maintaining O2 saturations in the high 90s on 4 L/m per nasal cannula. He's been afebrile. Hemodynamically stable. He was seen and evaluated by speech therapy recommends supervise feedings as the patient does her he threw meals. He is on a full liquid diet currently. He was also seen and evaluated by surgical services who remove 6 mL of fluid from his lap band to assist in his swallowing. Blood culture reveals no growth to date. White count 8.3. Hemoglobin 11.6. INR 3.9. Creatinine 0.90. He remains on bronchodilators, Zosyn, Levaquin. The patient is seen today 03/11/2019 in follow-up on the regular medical floor. He is awake and alert resting comfortably in bed. No worsening shortness of breath cough or congestion. Maintaining good O2 saturations in the upper 90s on 3 L/m per nasal cannula. He's been afebrile. White count 7.2. Hemoglobin 12.2. INR 2.4. Bicarb 44. Creatinine 1.01. He remains on bronchodilators, Zosyn and Levaquin. Objective - Vital Signs Vital signs: Vital Signs Temp 98 F 03/11/19 05:00 Pulse 64 03/11/19 08:43 Resp 18 03/11/19 05:00 BP 119/79 03/11/19 05:00 Pulse Ox 97 03/11/19 05:00 Intake & Output 03/10/19 03/11/19 03/11/19 18:59 06:59 18:59 Intake Total 500 740 Balance 500 740 Intake: Intake, IV Titration 100 200 Amount Piperacillin-Tazobactam 3 100 200 .375 gm In Sodium Chloride 0.9% 100 ml @ 25 mls/hr IVPB Q8HR [facility] Rx# :[id number] Oral 400 540 Other: Voiding Method Incontinent Urinal Incontinent # Voids 2 2 - Exam GENERAL EXAM: Alert, oriented times one comfortable in no apparent distress. On 3 L/m per nasal cannula HEAD: Normocephalic. EYES: Normal reaction of pupils, equal size. NOSE: Clear with pink turbinates. THROAT: No erythema or exudates. NECK: No masses, no JVD. CHEST: No chest wall deformity. LUNGS: Equal air entry with crackles in the bilateral posterior bases. CVS: S1 and S2 normal with no audible murmur, regular rhythm. ABDOMEN: No hepatosplenomegaly, normal bowel sounds, no guarding or rigidity. SPINE: No scoliosis or deformity SKIN: No rashes CENTRAL NERVOUS SYSTEM: Dementia, tone is normal in all 4 extremities. EXTREMITIES: There is trace peripheral edema. No clubbing, no cyanosis. Peripheral pulses are intact. - Labs CBC & Chem 7: 03/11/19 08:49 03/11/19 08:49 Labs: Abnormal Lab Results - Last 24 Hours (Table) 03/11/19 03/11/19 03/11/19 Range/Units 08:49 08:49 08:49 Hgb 12.2 L (13.0-17.5) gm/dL MCHC 30.9 L (31.0-37.0) g/dL PT 22.9 H (9.0-12.0) sec INR 2.4 H (<1.2) Potassium 5.2 H (3.5-5.1) mmol/L Chloride 97 L (98-107) mmol/L Carbon Dioxide 44 H* (22-30) mmol/L Glucose 117 H (74-99) mg/dL Microbiology - Last 24 Hours (Table) 03/09/19 05:15 Blood Culture - Preliminary Blood No Growth after 48 hours Assessment and Plan Assessment: Impression: #1 Acute hypoxic respiratory failure secondary to suspected aspiration pneumonia. #2 Dysphagia. Improved once gastric band fluid removed. #3 Dementia. #4 History of CVA. #5 Hypertension. #6 Hyperlipidemia. #7 Anxiety. #8 History of gastric banding. #9 Poor overall functional performance based on the above-mentioned multiple comorbidities. Plan: The patient was seen and evaluated by Dr. Lujan. He is stable from the pulmonary standpoint. He is cleared for transfer back to the [facility]. Continue oral antibiotics. He should remain on bronchodilators up to 4 times a day as needed. Continue with oxygen 24/7. I, the cosigning physician, performed a history & physical examination of the patient. Lungs sounds crackles in the posterior bases. Maintaining good O2 saturations in the 90s on 3 L/m per nasal cannula. I discussed the assessment and plan of care with my nurse practitioner, Gabriella Trevino. I attest to the above note as dictated by her.
--- NOTE | 2019-03-11 11:17 | P.PN ---
Progress Note - Text Progress Note Date: 03/11/19 The patient feels much better since his LAP-BAND was empty. He has no further dysphagia. He is tolerating regular diet. On exam his vital signs are stable. His evidence soft. Dysphagia and aspiration pneumonia related to occlusion at LAP-BAND site. Patient LAP-BAND was empty. His dysphagia has resolved.
[2019-03-11] MEDS: ALPRAZolam 0.5 MG TAB PO SCH ×2 (12:21→16:48)
--- NOTE | 2019-03-11 17:32 | PN ---
PROGRESS NOTE DATE OF SERVICE: 03/11/2019 This 78-year-old gentleman who was admitted with hypoxia with acute bilateral aspiration pneumonia is on IV antibiotics also. The patient also has some dysphagia, which is improving at this time. Surgery and Pulmonary are following the patient. No chest pain. No palpitations. No fever. On exam, alert and oriented x2. Pulse 48, blood pressure 116/79, respiration 15, temperature normal, pulse ox 96% on 2.5 L. HEENT: Conjunctivae normal. NECK: No jugular venous distention. CARDIOVASCULAR SYSTEM: S1, S2 muffled. RESPIRATORY SYSTEM: Breath sounds diminished at the bases. A few scattered rhonchi and crackles. ABDOMEN: Soft, non-tender. LEGS: No edema. No swelling. NERVOUS SYSTEM: No focal deficit. LABS: WBC 7.2, hemoglobin 12.2. Sodium 141, potassium 5.2. ASSESSMENT: 1. Hypoxia with acute bilateral aspiration pneumonia with acute hypoxic respiratory failure, present on admission. 2. Dysphagia, possibly secondary to lap band, status post lap band and fluid removal. 3. History of lap band and bariatric surgery previously. 4. History of gait dysfunction. 5. Coumadin coagulopathy. 6. Hyperlipidemia. 7. Hypertension. 8. History of low back pain and degenerative joint disease. 9. History of cerebrovascular accident, transient ischemic attack. 10.History of tremors. 11.History of peripheral vascular disease. 12.History of sick sinus syndrome. 13.History of bariatric surgery. 14.History of anxiety. 15.Obesity with body mass index of 46.8. 16.NO CODE, NO CPR, NO VENT. RECOMMENDATIONS AND DISCUSSION: I recommend to continue current medications, continue with the monitoring, symptomatic treatment. Continue with the broad-spectrum IV antibiotics, bronchodilators. Continue with diet. Guarded prognosis because of multiple complex medical issues. Further recommendations to follow. We will monitor the PT, INR closely. MMODL / IJN: [id number] /
[2019-03-11] MEDS ORDERED: WARFARIN 5 MG TAB PO ONE (18:00)
[2019-03-11] MEDS: MIRTAZAPINE 15 MG TAB PO SCH (20:10)
[2019-03-11] MEDS: DONEPEZIL 10 MG TAB PO SCH (20:10)
[2019-03-11] MEDS: PARoxetine 10 MG TAB PO SCH (20:10)
[2019-03-11] MEDS: ATORVASTATIN 10 MG TAB PO SCH (20:10)
[2019-03-11] MEDS: LORATADINE 10 MG TAB PO SCH (20:18)
[2019-03-12] MEDS: PIPERACILLIN-TAZOBACTAM 3.375 GM in SODIUM CHLORIDE 0.9% 100 ML IVPB SCH ×3 (00:02→17:44)
[2019-03-12] MEDS: ASPIRIN 81 MG PO SCH (05:30)
[2019-03-12] MEDS: LEVOFLOXACIN 750 MG TAB PO SCH (05:30)
[2019-03-12] MEDS: ACETAMINOPHEN TAB 500 MG TAB PO SCH ×2 (05:31→20:49)
[2019-03-12] MEDS: IPRATROPIUM-ALBUTEROL 3 ML NEB INHALATION SCH ×4 (07:19→19:52)
[2019-03-12] MEDS: MEMANTINE 10 MG TAB PO SCH ×2 (08:09→17:44)
[2019-03-12] MEDS: QUEtiapine 25 MG TAB PO SCH ×2 (08:09→17:44)
[2019-03-12] MEDS: MULTIVITAMINS, THERA 1 EACH TAB PO SCH (08:09)
[2019-03-12] MEDS: SOTALOL 80 MG TAB PO SCH ×2 (08:09→20:50)
[2019-03-12 08:36] LABS: Basophils # (A) 0.1 k/uL (0-0.2); Basophils % (A) 1 %; Eosinophils # (A) 0.3 k/uL (0-0.7); Eosinophils % (A) 3 %; HGB 13.8 gm/dL (13.0-17.5); Hypochromasia Slight; Lymphocytes # (A) 1.3 k/uL (1.0-4.8); Lymphocytes % (A) 12 %; MCH 27.7 pg (25.0-35.0); MCHC 30.6 g/dL (31.0-37.0); MCV 90.5 fL (80.0-100.0); Mean Platelet Volume 6.8; Monocytes # (A) 0.6 k/uL (0-1.0); Monocytes % (A) 5 %; Neutrophils # (A) 8.2 k/uL (1.3-7.7); Neutrophils % (A) 78 %; Platelet Count 181 k/uL (150-450); RBC 4.97 m/uL (4.30-5.90); RDW 14.4 % (11.5-15.5); WBC 10.6 k/uL (3.8-10.6)
[2019-03-12 08:51] LABS: INR 1.9 (<1.2); Prothrombin Time 18.6 sec (9.0-12.0)
[2019-03-12 08:55] LABS: African American GFR (CKD) >90 (>60 ml/min/1.73 sqM); Anion Gap 4 mmol/L; Blood Urea Nitrogen 15 mg/dL (9-20); Calcium 9.5 mg/dL (8.4-10.2); Carbon Dioxide 38 mmol/L (22-30); Chloride 100 mmol/L (98-107); Glucose 98 mg/dL (74-99); Potassium 4.8 mmol/L (3.5-5.1); Sodium 142 mmol/L (137-145)
--- NOTE | 2019-03-12 10:25 | P.PN ---
Progress Note - Text Progress Note Date: 03/12/19 Patient feels well. He is tolerating diet. He's had no further dysphagia. Resolve dysphagia after emptying of LAP-BAND. Patient will be discharged home per medicine.
[2019-03-12] MEDS ORDERED: ALPRAZolam 0.5 MG TAB PO PRN (15:36)
[2019-03-12] MEDS: ALPRAZolam 0.5 MG TAB PO SCH (16:10)
--- NOTE | 2019-03-12 16:39 | PN ---
PROGRESS NOTE DATE OF SERVICE: 03/12/2019 HISTORY: This 78-year-old gentleman who was admitted with hypoxia acute bilateral aspiration pneumonia and acute hypoxic respiratory failure continuing to be confused. Today the patient also had dysphagia. Patient was apparently feeling slightly better yesterday. Patient being closely monitored. Multiple consultants are following the patient closely including surgery and Pulmonary. EXAM: The patient is stuporous. Pulse 52. Blood pressure 103/67, respirations 17, temperature 97.8, pulse ox 98% on 2 L. HEENT: Conjunctivae normal. NECK: No jugular venous distention. CARDIOVASCULAR: S1, S2 muffled. RESPIRATION: Breath sounds diminished in the bases. Bilateral scattered rhonchi and crackles. ABDOMEN is soft, obese, nontender. LEGS are no edema. No swelling. CENTRAL NERVOUS SYSTEM: No focal deficits. LAB STUDIES: WBC 10.3, hemoglobin 13.8. INR is 1.9. Sodium 142, potassium 4.8. ASSESSMENT: 1. Hypoxia with acute bilateral aspiration pneumonia with acute hypoxic respiratory failure present on admission. 2. Dysphagia secondary to lap band and removal of fluid from the lap band. 3. Change in mental status possible acute metabolic encephalopathy, multifactorial. 4. History of lap band and bariatric surgery previously. 5. History of gait dysfunction. 6. Coumadin coagulopathy. 7. Hyperlipidemia. 8. Hypertension. 9. History of low back pain, degenerative joint disease. 10.History of cerebrovascular accident, transient ischemic attack. 11.History of tremors. 12.History of peripheral vascular disease. 13.History of sick sinus syndrome. 14.History of bariatric surgery. 15.History of anxiety. 16.Obesity with body mass index 46.8. 17.NO CODE NO CODE NO CPR NO VENT. RECOMMENDATIONS AND DISCUSSION: Recommend to continue current medications, monitoring, management and symptomatic treatment. Otherwise, at this time, we will continue to monitor. Continue the bronchodilators. Continue with antibiotics. Avoid pain medications. Guarded prognosis because of multiple complex medical issues. Further recommendations to follow. MMODL / IJN: [id number] /
[2019-03-12] MEDS ORDERED: WARFARIN 3 MG TAB PO ONE (18:00)
[2019-03-12] MEDS: PARoxetine 10 MG TAB PO SCH (20:50)
[2019-03-12] MEDS: ATORVASTATIN 10 MG TAB PO SCH (20:50)
[2019-03-12] MEDS: MIRTAZAPINE 15 MG TAB PO SCH (20:50)
[2019-03-12] MEDS: DONEPEZIL 10 MG TAB PO SCH (20:50)
[2019-03-13] MEDS: PIPERACILLIN-TAZOBACTAM 3.375 GM in SODIUM CHLORIDE 0.9% 100 ML IVPB SCH ×3 (00:19→16:53)
[2019-03-13] MEDS: ASPIRIN 81 MG PO SCH (06:08)
[2019-03-13] MEDS: ACETAMINOPHEN TAB 500 MG TAB PO SCH ×2 (06:08→17:01)
[2019-03-13] MEDS: LEVOFLOXACIN 750 MG TAB PO SCH (06:09)
[2019-03-13 07:41] LABS: Basophils % (A) 1 %; Eosinophils # (A) 0.3 k/uL (0-0.7); Eosinophils % (A) 4 %; HCT 42.8 % (39.0-53.0); Lymphocytes # (A) 1.3 k/uL (1.0-4.8); Lymphocytes % (A) 19 %; MCH 27.5 pg (25.0-35.0); MCHC 30.5 g/dL (31.0-37.0); MCV 90.1 fL (80.0-100.0); Mean Platelet Volume 6.7; Monocytes # (A) 0.5 k/uL (0-1.0); Monocytes % (A) 6 %; Neutrophils # (A) 4.9 k/uL (1.3-7.7); Neutrophils % (A) 69 %; Platelet Count 161 k/uL (150-450); RBC 4.75 m/uL (4.30-5.90); RDW 14.7 % (11.5-15.5); WBC 7.1 k/uL (3.8-10.6)
[2019-03-13 07:46] LABS: INR 1.6 (<1.2); Prothrombin Time 15.6 sec (9.0-12.0)
[2019-03-13 07:56] LABS: Calcium 9.2 mg/dL (8.4-10.2); Potassium 4.4 mmol/L (3.5-5.1)
[2019-03-13] MEDS: IPRATROPIUM-ALBUTEROL 3 ML NEB INHALATION SCH ×4 (08:14→19:41)
[2019-03-13] MEDS: MEMANTINE 10 MG TAB PO SCH ×2 (08:19→16:54)
[2019-03-13] MEDS: SOTALOL 80 MG TAB PO SCH ×3 (08:19→21:38)
[2019-03-13] MEDS: MULTIVITAMINS, THERA 1 EACH TAB PO SCH (08:19)
[2019-03-13] MEDS: QUEtiapine 25 MG TAB PO SCH ×2 (08:20→16:49)
--- NOTE | 2019-03-13 12:47 | P.PN ---
Progress Note - Text Progress Note Date: 03/13/19 The patient's tolerating his diet. He shows no signs of dysphagia. Per his family he is eating well. On exam is lesser stable. His evidence soft. Dysphagia related to LAP-BAND occlusion has been resolved by emptying his LAP- BAND. He will follow-up with myself as needed.
[2019-03-13] MEDS ORDERED: WARFARIN 3 MG TAB PO SCH (18:00)
[2019-03-13 18:27] VITALS: RESP 16
--- NOTE | 2019-03-13 21:13 | PN ---
PROGRESS NOTE DATE OF SERVICE: 03/13/2019. This 78-year-old gentleman who presented with hypoxia and bilateral aspiration pneumonia is being closely monitored. The patient also had change in mental status and possibly acute metabolic encephalopathy also. The lap band has been emptied at this time. No chest pain. No palpitations. No fever. EXAM: Pulse is 52, blood pressure 106/69, respiration 15, temperature 98.2, pulse ox 97% on 2 L. HEENT: Conjunctivae normal. NECK: No jugular venous distention. CARDIOVASCULAR: S1, S2 muffled. RESPIRATORY: Breath sounds diminished in the bases. A few scattered rhonchi and crackles. ABDOMEN: Soft, obese. LEGS: No edema. No swelling. CENTRAL NERVOUS SYSTEM: Diffusely weak. LAB STUDIES: WBC 7.1, hemoglobin is 13, INR 1.6. ASSESSMENT: 1. Hypoxia with acute bilateral aspiration pneumonia with acute hypoxic respiratory failure present on admission. 2. Dysphagia secondary to lap band and removal of the fluid from the lap band. 3. Change in mental status possible acute metabolic encephalopathy, multifactorial. 4. History of lap band and bariatric surgery previously. 5. History of gait dysfunction. 6. Coumadin coagulopathy. 7. Hypertension. 8. Hyperlipidemia. 9. History of low back pain. 10.Degenerative joint disease. 11.History of cerebrovascular accident, transient ischemic attack. 12.History of tremors. 13.History of peripheral vascular disease. 14.History of sick sinus syndrome. 15.History of bariatric surgery. 16.History of anxiety. 17.Obesity with body mass index 46.8. 18.NO CODE, NO CPR, NO VENT. RECOMMENDATIONS AND DISCUSSION: Recommend to continue current medications, continue monitoring, management and symptomatic treatments. Otherwise, at this time, continue the bronchodilators. Continue the antibiotics. Closely monitor. Dysphagia precautions. Guarded prognosis. Further recommendations to follow. MMODL / IJN: [id number] /
[2019-03-13] MEDS: ATORVASTATIN 10 MG TAB PO SCH (21:37)
[2019-03-13] MEDS: DONEPEZIL 10 MG TAB PO SCH (21:37)
[2019-03-13] MEDS: PARoxetine 10 MG TAB PO SCH (21:38)
[2019-03-13] MEDS: MIRTAZAPINE 15 MG TAB PO SCH (21:38)
[2019-03-14] MEDS: PIPERACILLIN-TAZOBACTAM 3.375 GM in SODIUM CHLORIDE 0.9% 100 ML IVPB SCH ×2 (00:33→08:38)
[2019-03-14] MEDS: LEVOFLOXACIN 750 MG TAB PO SCH (06:14)
[2019-03-14] MEDS: ASPIRIN 81 MG PO SCH (06:14)
[2019-03-14] MEDS: ACETAMINOPHEN TAB 500 MG TAB PO SCH (06:14)
[2019-03-14 07:37] LABS: Basophils # (A) 0.1 k/uL (0-0.2); Basophils % (A) 1 %; Eosinophils # (A) 0.3 k/uL (0-0.7); Eosinophils % (A) 4 %; HCT 40.4 % (39.0-53.0); HGB 12.7 gm/dL (13.0-17.5); Hypochromasia Slight; Lymphocytes # (A) 1.5 k/uL (1.0-4.8); Lymphocytes % (A) 22 %; MCHC 31.5 g/dL (31.0-37.0); MCV 88.8 fL (80.0-100.0); Mean Platelet Volume 7.5; Monocytes # (A) 0.4 k/uL (0-1.0); Monocytes % (A) 6 %; Neutrophils # (A) 4.3 k/uL (1.3-7.7); Neutrophils % (A) 64 %; Platelet Count 154 k/uL (150-450); RBC 4.55 m/uL (4.30-5.90); RDW 15.3 % (11.5-15.5); WBC 6.7 k/uL (3.8-10.6)
[2019-03-14 07:51] LABS: Potassium 4.3 mmol/L (3.5-5.1)
[2019-03-14 07:59] LABS: INR 1.7 (<1.2); Prothrombin Time 17.2 sec (9.0-12.0)
[2019-03-14] MEDS: IPRATROPIUM-ALBUTEROL 3 ML NEB INHALATION SCH ×2 (08:25→11:26)
[2019-03-14] MEDS: MEMANTINE 10 MG TAB PO SCH (08:38)
[2019-03-14] MEDS: MULTIVITAMINS, THERA 1 EACH TAB PO SCH (08:38)
--- NOTE | 2019-03-14 11:32 | P.DS ---
Providers Date of admission: 03/09/19 05:56 Attending physician: Denia Fernandes Consults: 03/09/19 11:56 Consult Physician Routine Consulting Provider: Alcira Lujan Consult Reason/Comments: pneumonia Do you want consulting provider notified?: Yes 03/09/19 11:57 Consult Physician Routine Consulting Provider: Ke Macias Consult Reason/Comments: lap band Do you want consulting provider notified?: Yes Primary care physician: Stated None Hospital Course: Final diagnosis Hypoxia with acute bilateral aspiration pneumonia with acute hypoxic respiratory failure present on admission. Dysphagia secondary to LAP-BAND Status post removal of fluid from the LAP-BAND. Change in mental status acute metabolic encephalopathy multifactorial. History of LAP-BAND and bariatric surgery previously History of gait dysfunction Coumadin cardiopathy Hypertension Hyperlipidemia History of low back pain DJD CVA TIA History of tremors Peripheral vascular disease sick sinus syndrome History of anxiety Obesity body mass index of 46.8 No code CPR event Discharge disposition Patient be discharged in a stable condition with guarded prognosis patient be discharged back to [facility]. Total time taken is 35 minutes. History of present illness This 78-year-old gentleman with a past medical history multiple medical problems was admitted with the hypoxia and aspiration pneumonia. Patient also had dysphagia. Patient was treated with broad-spectrum IV antibiotics and bronchodilators. Patient improved significantly. Surgery Dr. Macias evaluated the dysphagia. Fluid is removed from LAP-BAND. Patient improved significantly. Patient is able to swallow after that. However close monitoring and supervise feedings for aspiration precautions been advised. Patient improved significantly as mentioned earlier. Patient be discharged to [facility]CF in a stable condition with guarded prognosis. On exam vitals are stable. Cardio S1 and S2 normal. Respirator system few scattered rhonchi. Abdomen soft obese. Nervous system system diffusely weak. Please refer to the medication reconciliation sheet for list of medications. Patient Condition at Discharge: Poor Plan - Discharge Summary Discharge Rx Participant: No New Discharge Prescriptions: New Amoxic-Pot Clav 600-42.9MG/5Ml [Augmentin 600-42.9 mg/5 ml Liquid] 5 ml PO Q12H 5 Days ml Ipratropium-Albuterol Nebulize [Duoneb 0.5 mg-3 mg/3 ml Soln] 3 ml INHALATION RT-QID ampul.neb Folic Acid 1 mg PO DAILY #30 tablet Thiamine [Vitamin B-1] 100 mg PO DAILY #30 tablet Continue Simvastatin [Zocor] 10 mg PO HS Aspirin 81 mg PO DAILY@0600 Multivitamin [Men's Multi-Vitamin] 1 tab PO DAILY Saline Emema 1 dose RECTAL DAILY PRN PRN Reason: Constipation Acetaminophen Tab [Tylenol] 650 mg PO Q6H PRN PRN Reason: Pain Acetaminophen Tab [Tylenol] 500 mg PO Q6H PRN PRN Reason: Pain Or Fever > 100.5 Acetaminophen Tab [Tylenol] 500 mg PO BID@0500,2000 ALPRAZolam [Xanax] 0.5 mg PO BID@1300,1700 Bisacodyl [Dulcolax] 10 mg RECTAL DAILY PRN PRN Reason: Constipation Donepezil [Aricept] 10 mg PO HS Magnesium Hydroxide [Milk of Magnesia] 2,400 mg PO DAILY PRN PRN Reason: Constipation Memantine [Namenda] 10 mg PO BID@0900,1700 Sotalol [Betapace] 80 mg PO BID Warfarin [Coumadin] 2 mg PO HS Warfarin [Coumadin] 5 mg PO HS Mirtazapine 30 mg PO HS #5 tablet PARoxetine HCL [Paxil] 10 mg PO HS #5 tablet QUEtiapine FUMARATE [SEROquel] 25 mg PO BID@0900,1700 #5 tablet Discontinued Loratadine [Claritin] 10 mg PO HS Discharge Medication List Aspirin 81 mg PO DAILY@0600 10/08/16 [History] Multivitamin [Men's Multi-Vitamin] 1 tab PO DAILY 10/08/16 [History] Simvastatin [Zocor] 10 mg PO HS 10/08/16 [History] ALPRAZolam [Xanax] 0.5 mg PO BID@1300,1700 03/09/19 [History] Acetaminophen Tab [Tylenol] 500 mg PO BID@0500,2000 03/09/19 [History] Acetaminophen Tab [Tylenol] 500 mg PO Q6H PRN 03/09/19 [History] Acetaminophen Tab [Tylenol] 650 mg PO Q6H PRN 03/09/19 [History] Bisacodyl [Dulcolax] 10 mg RECTAL DAILY PRN 03/09/19 [History] Donepezil [Aricept] 10 mg PO HS 03/09/19 [History] Magnesium Hydroxide [Milk of Magnesia] 2,400 mg PO DAILY PRN 03/09/19 [History] Memantine [Namenda] 10 mg PO BID@0900,1700 03/09/19 [History] Saline Emema 1 dose RECTAL DAILY PRN 03/09/19 [History] Sotalol [Betapace] 80 mg PO BID 03/09/19 [History] Warfarin [Coumadin] 2 mg PO HS 03/09/19 [History] Warfarin [Coumadin] 5 mg PO HS 03/09/19 [History] Amoxic-Pot Clav 600-42.9MG/5Ml [Augmentin 600-42.9 mg/5 ml Liquid] 5 ml PO Q12H 5 Days ml 03/14/19 [Rx] Folic Acid 1 mg PO DAILY #30 tablet 03/14/19 [Rx] Ipratropium-Albuterol Nebulize [Duoneb 0.5 mg-3 mg/3 ml Soln] 3 ml INHALATION RT-QID ampul.neb 03/14/19 [Rx] Mirtazapine 30 mg PO HS #5 tablet 03/14/19 [Rx] PARoxetine HCL [Paxil] 10 mg PO HS #5 tablet 03/14/19 [Rx] QUEtiapine FUMARATE [SEROquel] 25 mg PO BID@0900,1700 #5 tablet 03/14/19 [Rx] Thiamine [Vitamin B-1] 100 mg PO DAILY #30 tablet 03/14/19 [Rx] Follow up Appointment(s)/Referral(s): None,Stated [Primary Care Provider] - 1-2 days Activity/Diet/Wound Care/Special Instructions: Diet as tolerated Activity as tolerated Supervised feeds and aspiration precautions. And watch for aspirations.
[2019-03-14] MEDS: QUEtiapine 25 MG TAB PO SCH (11:46)
[2019-03-14] MEDS: SOTALOL 80 MG TAB PO SCH (11:46)
[2019-03-14 12:26] VITALS: BP 108/74; PULSE 53; TEMP 98
[2019-03-14] MEDS ORDERED: WARFARIN 2 MG TAB PO ONE (18:00)
== END 2019-03-14 14:47 | DRG 177 ==
LOC: EC 04:37 → 3NMEDONC 05:56
PROVIDERS: ADMIT Hospitalist; ATTEND Hospitalist
DX: J69.0 Pneumonitis due to inhalation of food and vomit (principal); J96.01 Acute respiratory failure with hypoxia; G93.41 Metabolic encephalopathy; K95.09 Other complications of gastric band procedure; Z68.42 Body mass index [BMI] 45.0-49.9, adult; I69.354 Hemiplegia and hemiparesis following cerebral infarction affecting left non-dominant side; E66.9 Obesity, unspecified; R79.1 Abnormal coagulation profile; T45.515A Adverse effect of anticoagulants, initial encounter; E78.5 Hyperlipidemia, unspecified; F03.90 Unspecified dementia, unspecified severity, without behavioral disturbance, psychotic disturbance, mood disturbance, and anxiety; F41.9 Anxiety disorder, unspecified; I10 Essential (primary) hypertension; I49.5 Sick sinus syndrome; I73.9 Peripheral vascular disease, unspecified; M19.90 Unspecified osteoarthritis, unspecified site; R13.10 Dysphagia, unspecified; R63.3 Feeding difficulties; Y83.1 Surgical operation with implant of artificial internal device as the cause of abnormal reaction of the patient, or of later complication, without mention of misadventure at the time of the procedure; Z79.01 Long term (current) use of anticoagulants; Z79.82 Long term (current) use of aspirin; Z79.899 Other long term (current) drug therapy; Z98.84 Bariatric surgery status; G47.33 Obstructive sleep apnea (adult) (pediatric); Z66 Do not resuscitate; Z82.0 Family history of epilepsy and other diseases of the nervous system; M54.5 Low back pain; R26.9 Unspecified abnormalities of gait and mobility
CPT/HCPCS: 36415; 71045; 80048; 80053; 82803; 85025; 85610; 87040; 94640; 94760; 96365; 96375; 99285